=== PATIENT | female | born 1980 | race Caucasian/White ===

== ENCOUNTER → 2017-07-09 | Outpatient (CLI) | payer MEDICARE, MEDICAID ==
--- NOTE | 2017-07-09 15:51 | REP ---
Right knee five views: There is a small suprapatellar effusion. There is no fracture or dislocation. Mineralization joint spaces are normal. There are no calcifications or foreign bodies. Impression: Small suprapatellar effusion. Signed by Williams Villalobos MD 07/09/2017 03:42 P
== END ==
LOC: M ADAMS 15:07
PROVIDERS: ATTEND Physician Assistant
DX: M25.561 Pain in right knee (principal)

== ENCOUNTER 2022-11-05 13:32 | Emergency (ER) | payer MEDICAID, MEDICARE ==
[~2022-11-05] VITALS: Ht 152.4 cm; Wt 86.2 kg
[2022-11-05] MEDS ORDERED: MORPHINE 4 MG/ML 1ML VIAL IV ONE (14:20)
[2022-11-05] MEDS ORDERED: ONDANSETRON 4MG 2ML VIAL IV ONE (14:20)
[2022-11-05 15:10] LABS: HEMATOCRIT 40.8 % (36.0-47.0); HEMOGLOBIN 13.3 g/dl (12.0-15.5); MEAN CORPUSCULAR HEMOGLOBIN 29.2 pg (27.0-33.0); MEAN CORPUSCULAR HGB CONC 32.6 g/dl (32.0-36.5); MEAN CORPUSCULAR VOLUME 89.7 fl (80.0-96.0); PLATELET COUNT, AUTOMATED 272 10^3/uL (150-450); RED BLOOD COUNT 4.55 10^6/uL (4.00-5.40); WHITE BLOOD COUNT 7.1 10^3/uL (4.0-10.0)
[2022-11-05 15:31] LABS: MAGNESIUM LEVEL 2.1 MG/DL (1.8-2.4)
[2022-11-05 15:32] LABS: CK-MB VALUE MASS < 1.0 NG/ML (<3.6)
[2022-11-05 15:33] LABS: BLOOD UREA NITROGEN 9 MG/DL (9-23); CARBON DIOXIDE LEVEL 22 MMOL/L (20-31); CHLORIDE LEVEL 109 MMOL/L (98-107); CREATININE FOR GFR 0.71 MG/DL (0.55-1.30); GLOMERULAR FILTRATION RATE > 60.0 (>58); GLUCOSE, FASTING 83 MG/DL (60-100); POTASSIUM SERUM 4.5 MMOL/L (3.5-5.1); SODIUM LEVEL 140 MMOL/L (136-145)
[2022-11-05 15:34] LABS: CPK CREATINE PHOSPHOKINASE 89 U/L (34-145); MB/CK RELATIVE INDEX 1.12 (< OR =4)
[2022-11-05 15:38] LABS: ATYPICAL LYMPH 24 % (0-5); EOSINOPHILS 1 % (0-3); LYMPHOCYTES 23 % (16-44); NEUTROPHILS 52 % (28-66); PLATELET ESTIMATE NORMAL (NORMAL)
[2022-11-05 15:54] LABS: MONO REFLEX EBV COMP NEGATIVE (NEGATIVE)
[2022-11-05] MEDS ORDERED: KETOROLAC 30 MG/ML 1ML VIAL IV ONE (16:40)
[2022-11-05] MEDS ORDERED: LIDO5DIS41 TOP (17:20)
[2022-11-05] MEDS ORDERED: MEDR4PAK PO (17:20)
[2022-11-05 17:21] VITALS: BP 136/72
[2022-11-05] MEDS ORDERED: GABA-1171 PO (17:22)
[2022-11-07 15:07] LABS: EBV VIRAL CAPSID AG IgG >600.0 U/mL (0.0-17.9); EBV VIRAL CAPSID AG IgM <36.0 U/mL (0.0-35.9)
== END 2022-11-05 17:58 | disposition home or self-care (01) ==
LOC: M ED 13:32
DX: M54.12 Radiculopathy, cervical region (principal); M48.02 Spinal stenosis, cervical region; M50.30 Other cervical disc degeneration, unspecified cervical region; M25.512 Pain in left shoulder; M18.0 Bilateral primary osteoarthritis of first carpometacarpal joints; F17.200 Nicotine dependence, unspecified, uncomplicated; F12.10 Cannabis abuse, uncomplicated; Z79.891 Long term (current) use of opiate analgesic; Z79.899 Other long term (current) drug therapy
CPT/HCPCS: 70450; 72125; 73060; 73090; 73140; 80048; 82550; 82553; 83735; 84484; 85025; 86308; 86664; 86665; 93005; 93971; 96374; 96375; 99284; J2405

== ENCOUNTER 2024-04-11 16:35 | Inpatient (IN) | payer MEDICARE ==
[~2024-04-11] VITALS: Ht 152.4 cm; Wt 81.2 kg
[~2024-04-11 16:35] MED LIST: GABA-1171 PO; LIDO5DIS41 TOP; MEDR4PAK PO
[2024-04-11 17:25] LABS: HEMATOCRIT 42.5 % (36.0-47.0); HEMOGLOBIN 14.4 g/dl (12.0-15.5); MEAN CORPUSCULAR HEMOGLOBIN 29.8 pg (27.0-33.0); MEAN CORPUSCULAR HGB CONC 33.9 g/dl (32.0-36.5); PLATELET COUNT, AUTOMATED 269 10^3/uL (150-450); RED BLOOD COUNT 4.83 10^6/uL (4.00-5.40); WHITE BLOOD COUNT 7.1 10^3/uL (4.0-10.0)
[2024-04-11 17:42] LABS: ETHYL ALCOHOL (ETHANOL) < 0.003 % (0.000-0.010)
[2024-04-11 17:44] LABS: ALBUMIN 4.1 G/DL (3.2-5.2); ALKALINE PHOSPHATASE 119 U/L (46-116); ALT/SGPT 19 U/L (7.0-40); AST/SGOT 14 U/L (<34); BILIRUBIN,DIRECT 0.1 MG/DL (<0.4); BILIRUBIN,TOTAL 0.4 MG/DL (0.3-1.2); BLOOD UREA NITROGEN 7 MG/DL (9-23); CALCIUM LEVEL 9.6 MG/DL (8.5-10.1); CARBON DIOXIDE LEVEL 22 MMOL/L (20-31); CHLORIDE LEVEL 109 MMOL/L (98-107); CREATININE FOR GFR 0.86 MG/DL (0.55-1.30); GLOMERULAR FILTRATION RATE > 60.0 (>58); GLUCOSE, FASTING 118 MG/DL (60-100); POTASSIUM SERUM 3.8 MMOL/L (3.5-5.1); SALICYLATE LEVEL < 3.0 MG/DL (<30); SODIUM LEVEL 138 MMOL/L (136-145); TOTAL PROTEIN 7.1 G/DL (5.7-8.2)
[2024-04-11 17:47] LABS: THYROID STIMULATING HORMONE 1.481 uIU/ML (0.55-4.78)
[2024-04-11 18:05] LABS: AMPHETAMINES LEVEL URINE NEGATIVE (NEGATIVE); BARBITURATES URINE NEGATIVE (NEGATIVE); BENZODIAZEPINES URINE NEGATIVE (NEGATIVE); COCAINE METABOLITE URINE NEGATIVE (NEGATIVE); METHADONE URINE NEGATIVE (NEGATIVE); OPIATES URINE NEGATIVE (NEGATIVE)
[2024-04-11 18:06] LABS: PHENCYCLIDINE URINE NEGATIVE (NEGATIVE)
[2024-04-11 18:08] LABS: CANNABINOIDS URINE POSITIVE (NEGATIVE)
[2024-04-11] MEDS ORDERED: OLANZapine ORAL DISINTEGRATING TAB 5MG PO PRN (19:10)
[2024-04-11] MEDS ORDERED: MAALOX 30 ML SUSP *UDC PO PRN (19:10)
[2024-04-11] MEDS ORDERED: traZODone 50 MG TAB PO PRN (19:10)
[2024-04-11] MEDS ORDERED: diphenhydrAMINE 25MG CAP PO PRN (19:10)
[2024-04-11] MEDS ORDERED: ACETAMINOPHEN TAB 650MG DOSE (2X325MG) PO PRN (19:10)
[2024-04-11] MEDS ORDERED: LORazepam 2 MG TAB PO PRN (19:10)
[2024-04-11] MEDS ORDERED: MOM 30ML SUSPENSION UDC PO PRN (19:10)
[2024-04-11] MEDS: IBUPROFEN 400MG TAB PO PRN (20:21)
[2024-04-11] MEDS: THIAMINE 100 MG TAB PO SCH (20:22)
[2024-04-11 22:48] VITALS: BP 131/93; TEMP 96.8; O2SAT 97
[2024-04-11 23:00] VITALS: BP 131/93
[2024-04-12 06:15] VITALS: BP 125/70; TEMP 97.9; O2SAT 97
[2024-04-12] MEDS: MULTIVITAMINS/MINERALS THERAP 1 TAB PO SCH (09:00)
[2024-04-12] MEDS: FOLIC ACID 1MG TAB PO SCH (09:00)
[2024-04-12] MEDS: NICOTINE 21MG/24HR 1 EA TRANSDERMAL TD SCH (09:02)
[2024-04-12] MEDS ORDERED: HOME MED LIST COMPLETE! XX SCH (09:10)
[2024-04-12] MEDS: busPIRone 5 MG TAB PO SCH (09:16)
[2024-04-12 11:00] VITALS: BP 125/70
[2024-04-12 16:06] VITALS: BP 140/71; TEMP 98; O2SAT 98
[2024-04-12 18:01] VITALS: BP 134/76
[2024-04-12] MEDS: PILL CUTTER 1 EACH XX PRN (20:54)
[2024-04-13 06:10] VITALS: BP 150/89; TEMP 96.7
[2024-04-13 09:26] VITALS: BP 150/89; TEMP 96.7; O2SAT 98
[2024-04-13 15:11] VITALS: BP 110/71; TEMP 97.8; O2SAT 99
[2024-04-14 06:17] VITALS: BP 150/79; TEMP 96.5; O2SAT 98
[2024-04-14] MEDS ORDERED: NICO21PAT TD (10:31)
[2024-04-14] MEDS ORDERED: BUSP5TA PO (10:31)
== END 2024-04-14 12:46 | disposition home or self-care (01) | DRG 881 ==
LOC: M ED 16:35 → M ED INP 19:09 → M PSY 22:12
PROVIDERS: ADMIT Student in an Organized Health Care Education/Training Program; ATTEND Student in an Organized Health Care Education/Training Program
DX: F43.21 Adjustment disorder with depressed mood (principal); R45.851 Suicidal ideations; F41.1 Generalized anxiety disorder; F12.90 Cannabis use, unspecified, uncomplicated; F17.210 Nicotine dependence, cigarettes, uncomplicated; Z63.5 Disruption of family by separation and divorce; Z62.810 Personal history of physical and sexual abuse in childhood; Z88.5 Allergy status to narcotic agent

== ENCOUNTER → 2025-05-25 | Outpatient (REF) | payer MEDICARE ==
[~2025-05-25] MED LIST changes: +BUSP5TA PO; +GLYC1SUP38 PR; +LIDO1ADH93 TOP; -LIDO5DIS41 TOP; +MIRA3350 PO; +NICO21PAT TD
[2025-05-25 18:21] LABS: APPEARANCE, URINE CLEAR (CLEAR); BACTERIA, URINE AUTO NEGATIVE (NEGATIVE); BILIRUBIN, URINE AUTO NEGATIVE (NEGATIVE); BLOOD, URINE BLOOD NEGATIVE (NEGATIVE); GLUCOSE, URINE (UA) AUTO NEGATIVE (NEGATIVE); KETONE, URINE AUTO NEGATIVE (NEGATIVE); LEUKOCYTE ESTERASE, URINE AUTO NEGATIVE (NEGATIVE); NITRITE, URINE AUTO NEGATIVE (NEGATIVE); PROTEIN, URINE AUTO NEGATIVE (NEGATIVE); RBC, URINE AUTO 1 /HPF (0-3); SPECIFIC GRAVITY URINE AUTO 1.009 (1.002-1.035); SQUAMOUS EPITHELIAL CELL UR AU 0 /HPF (0-6); UROBILINOGEN, URINE AUTO 0.2 mg/dL (0.0-2.0); WBC, URINE AUTO 0 /HPF (0-3)
== END ==
LOC: M LAB REF 17:05
PROVIDERS: ATTEND Physician Assistant Medical
DX: N39.0 Urinary tract infection, site not specified (principal)

== ENCOUNTER 2025-05-27 12:13 | Emergency (ER) | payer MEDICARE ==
[~2025-05-27] VITALS: Ht 152.4 cm; Wt 55.4 kg
[~2025-05-27 12:13] MED LIST changes: -GLYC1SUP38 PR; -MIRA3350 PO
[2025-05-27] MEDS: LIDOCAINE/PRILOCAINE CREAM 5 GM TUBE TOP ONE (14:35)
[2025-05-27] MEDS ORDERED: ISOVUE-370 76% 100 ML VIAL As Ordered ONE (15:25)
[2025-05-27 15:56] LABS: PLATELET COUNT, AUTOMATED 298 10^3/uL (150-450)
[2025-05-27] MEDS: GASTROGRAFIN SOLUTION 30ML PO SCH (15:58)
[2025-05-27 16:13] LABS: CALCIUM LEVEL 9.4 MG/DL (8.5-10.1); CARBON DIOXIDE LEVEL 24 MMOL/L (20-31); CHLORIDE LEVEL 105 MMOL/L (98-107); CREATININE FOR GFR 0.80 MG/DL (0.55-1.30); GLOMERULAR FILTRATION RATE > 90.0 (>58); POTASSIUM SERUM 4.1 MMOL/L (3.5-5.1); SODIUM LEVEL 140 MMOL/L (136-145)
[2025-05-27 16:32] LABS: ATYPICAL LYMPH 2 % (0-5); EOSINOPHILS 1 % (0-3); LYMPHOCYTES 48 % (16-44); MONOCYTES 4 % (0-5); NEUTROPHILS 45 % (28-66)
[2025-05-27 16:33] LABS: PLATELET ESTIMATE NORMAL (NORMAL)
[2025-05-27 19:44] LABS: ALT/SGPT 27 U/L (7.0-40); AST/SGOT 26 U/L (<34)
[2025-05-27] MEDS ORDERED: GLYC1SUP38 PR (21:36)
[2025-05-27] MEDS ORDERED: MIRA3350 PO (21:36)
[2025-05-27 21:52] VITALS: BP 112/75; TEMP 98.3; O2SAT 97
== END 2025-05-27 21:53 | disposition home or self-care (01) ==
LOC: M ED 12:13
DX: K56.41 Fecal impaction (principal); F17.200 Nicotine dependence, unspecified, uncomplicated; K42.9 Umbilical hernia without obstruction or gangrene; M85.80 Other specified disorders of bone density and structure, unspecified site; Z88.5 Allergy status to narcotic agent; Z79.899 Other long term (current) drug therapy
CPT/HCPCS: 36415; 74177; 80048; 80076; 85025; 99284; Q9963; Q9967

== ENCOUNTER → 2025-07-10 | Outpatient (CLI) | payer MEDICARE ==
[~2025-07-10] MED LIST changes: +GLYC1SUP38 PR; +MIRA3350 PO
== END ==
LOC: M WHC 13:14
PROVIDERS: ATTEND Student in an Organized Health Care Education/Training Program
DX: Z12.31 Encounter for screening mammogram for malignant neoplasm of breast (principal); R92.313 Mammographic fatty tissue density, bilateral breasts

== ENCOUNTER → 2025-07-29 | Outpatient (REF) | payer MEDICARE | LOC: M SFHCLERA 17:34 | PROVIDERS: ATTEND Student in an Organized Health Care Education/Training Program | DX: R09.89 Other specified symptoms and signs involving the circulatory and respiratory systems (principal) ==

== ENCOUNTER → 2025-08-04 | Outpatient (CLI) | payer MEDICARE | LOC: M RAD 06:37 | PROVIDERS: ATTEND Surgery | DX: K83.8 Other specified diseases of biliary tract (principal) ==